=== PATIENT | female | born 1980 | race Caucasian/White ===

== ENCOUNTER 2017-08-26 15:04 | Outpatient (CLI) | payer OTHER | END 2017-08-26 15:05 | disposition home or self-care (01) | LOC: BICULT 15:04 | PROVIDERS: ATTEND Family Medicine | DX: Z34.92 Encounter for supervision of normal pregnancy, unspecified, second trimester (principal); Z3A.20 20 weeks gestation of pregnancy | CPT/HCPCS: 76805 ==

== ENCOUNTER 2018-01-12 08:48 | Inpatient (IN) | payer OTHER ==
[2018-01-15] MEDS ORDERED: Sodium Chloride 0.9% 10 ML ONE (23:40)
[2018-01-15 23:41] VITALS: BMI 35.9
[2018-01-16] MEDS ORDERED: Ondansetron HCl/PF 4 MG/2 ML Vial IVP PRN (00:15)
[2018-01-16] MEDS ORDERED: Butorphanol Tartrate 1 MG/ML VIAL SLOW IVP PRN (00:15)
[2018-01-16] MEDS ORDERED: Promethazine HCl 25 MG/ML VIAL IM PRN (00:15)
[2018-01-16] MEDS ORDERED: Acetaminophen 500 MG TAB PO PRN (00:15)
[2018-01-16 00:19] LABS: Hemoglobin 14.1 g/dL (12.0-16.0); Mean Corpuscular HGB CONC 34.9 g/dL (32.0-36.0); Mean Corpuscular Hemoglobin 31.4 pg (27.0-31.0); Mean Platelet Volume 7.2 fL (7.4-10.4); Platelet Count 224 thou/uL (130-400); RBC Distribution Width 12.4 % (11.5-14.5); Red Blood Cell (RBC) Count 4.48 mill/uL (4.20-5.40); White Blood Cell (WBC) Count 10.5 thou/uL (4.8-10.8)
[2018-01-16] MEDS ORDERED: Lidocaine 1% (PF) 30 ML VIAL SC PRN (00:30)
[2018-01-16] MEDS ORDERED: Misoprostol 200 MCG TAB RC PRN (00:30)
[2018-01-16] MEDS ORDERED: Ibuprofen 800 MG TAB PO PRN (00:30)
[2018-01-16] MEDS ORDERED: NS w/ Oxytocin 10 units 500 ML IV SCH ×2 (00:30)
[2018-01-16 00:45] LABS: Syphilis Antibody Nonreactive (Nonreactive); Syphilis Antibody Index 0.02 S/CO (<1.00 Non-Reactive)
[2018-01-16 00:46] LABS: HBSAg Index 0.14 S/CO (0-0.99); Hep B Surf Ag Non-Reactive S/CO (NonReactive)
[2018-01-16] MEDS: Lactated Ringer's 1,000 ML IV SCH ×3 (01:32→14:14)
[2018-01-16] MEDS ORDERED: NS / Oxytocin 40 units/1000ml 1,000 ML ONE ×2 (15:18→15:19)
[2018-01-16] MEDS ORDERED: Preparation H Ointment 28 GM TUBE PR PRN (19:10)
[2018-01-16] MEDS ORDERED: NS / Oxytocin 40 units/1000ml 1,000 ML IV SCH (19:10)
[2018-01-16] MEDS ORDERED: Lanolin Ointment 7 GM TUBE TOP PRN (19:10)
[2018-01-16] MEDS ORDERED: Benzocaine/Menthol 20-0.5% 60 ML CAN TOP PRN (19:10)
[2018-01-16] MEDS ORDERED: Bisacodyl 10 MG SUPP PR PRN (19:10)
[2018-01-16] MEDS ORDERED: Milk Of Magnesia 30 ML UDCUP PO PRN (19:10)
[2018-01-16] MEDS ORDERED: Ferrous Sulfate 325 MG TAB PO SCH (19:15)
[2018-01-16] MEDS ORDERED: Measles/Mumps/Rubella 10 MCG/0.5 ML VIAL SC ONE (20:00)
[2018-01-16] MEDS: Docusate Calcium (SURFAK) 240 MG CAP PO SCH (21:11)
[2018-01-17] MEDS: Ibuprofen 800 MG TAB PO SCH ×3 (01:57→13:58)
[2018-01-17] MEDS ORDERED: Ferrous Sulfate 325 MG TAB PO SCH (08:00)
[2018-01-17] MEDS: Docusate Calcium (SURFAK) 240 MG CAP PO SCH (09:02)
--- NOTE | 2018-01-17 15:15 | PDOC.PP ---
Post Progress Note Post Day #: 1 Subjective: C/O pain in the right calf, started during the night. No swelling. Some varicose veins in that leg but this is different than those. well. Lochia normal. PO intake tolerated: yes Flatus: yes Ambulation: yes Vital Signs (12 hours) Temp Pulse Resp BP 01/17/18 12:00 97.6 F 80 20 01/17/18 11:23 97.6 F 80 20 123/59 L 01/17/18 07:59 97.8 F 75 20 112/63 01/17/18 07:40 97.8 F 75 20 01/17/18 04:45 98.1 F 83 18 117/61 Weight Weight 229 lb - Physical Examination General: NAD Cardiovascular: no m/r/g, RRR Respiratory: clear to auscultation bilaterally, non-labored breathing Abdominal: + bowel sounds, lochia, no distention, appropriately TTP Extremities: negative homans (B) (No swelling, some tenderness to palpation mid calf on the right) Psychiatric: A&Ox3, normal affect Result Diagrams: 01/15/18 23:40 Additional Labs: Post Labs Blood Type O POSITIVE 01/15/18 23:49 Hep Bs Antigen Non-Reactive S/CO (NonReactive) 01/15/18 23:40 (1) Right calf pain Code(s): M79.661 - PAIN IN RIGHT LOWER LEG Status: Acute (2) Vaginal delivery Status: Acute - Assessment/Plan Check U/S of lower extremity for DVT Routine PP care D/C home this evening if U/S negative
--- NOTE | 2018-01-17 16:00 | ULT ---
RIGHT LOWER EXTREMITY VENOUS DUPLEX ULTRASOUND INCLUDING COLOR AND SPECTRAL DOPPLER IMAGING: History: 37-year-old female with history of right calf pain. Patient recently gave . FINDINGS: Exam performed from groin to ankle including visualized greater saphenous, common femoral, superficia l femoral, profunda femoral, popliteal, trifurcation and posterior tibial vein regions. There is phas ic flow at all levels. Normal compressibility and normal augmentation. IMPRESSION: No evidence for deep venous thrombosis. POS: Cristal
[2018-01-17 17:36] VITALS: BP 121/66; TEMP 97.9
== END 2018-01-17 19:45 | disposition home or self-care (01) | DRG 775 ==
LOC: L&D 01-15 22:47 → 3SW 01-16 18:33
PROVIDERS: ADMIT Family Medicine; ATTEND Family Medicine
PROC: 10E0XZZ Delivery of Products of Conception, External Approach (ICD-10-PCS; principal; 2018-01-16)
PROC: 0HQ9XZZ Repair Perineum Skin, External Approach (ICD-10-PCS; 2018-01-16)
PROC: 10907ZC Drainage of Amniotic Fluid, Therapeutic from Products of Conception, Via Natural or Artificial Opening (ICD-10-PCS; 2018-01-16)
PROC: 3E0P7VZ Introduction of Hormone into Female Reproductive, Via Natural or Artificial Opening (ICD-10-PCS; 2018-01-16)
PROC: 3E033VJ Introduction of Other Hormone into Peripheral Vein, Percutaneous Approach (ICD-10-PCS; 2018-01-16)
DX: O70.0 First degree perineal laceration during delivery (principal); Z3A.40 40 weeks gestation of pregnancy; Z37.0 Single live birth
CPT/HCPCS: 85027; 86780; 86850; 86900; 86901; 87340; 90707; A4216; C1726; J2001

== ENCOUNTER 2018-06-02 14:09 | Outpatient (CLI) | payer OTHER ==
--- NOTE | 2018-06-02 19:23 | ULT ---
PELVIC ULTRASOUND INCLUDING TRANSABDOMINAL AND TRANSVAGINAL AND VASCULAR DUPLEX WITH COLOR AND SPECTR AL DOPPLER IMAGING: HISTORY: four months ago with pelvic pain. FINDINGS: The uterus measures 7.5 x 3.4 x 4 cm. The endometrium is 0.7 cm. The right ovary measures 2.4 x 1.4 x 1.6 cm. The left ovary measures 1.9 x 1.6 x 1.9 cm and contains a 1.3 x 1.5 cm follicle. The con tour of the bladder wall was somewhat irregular, although this may just be related to incomplete fill ing. There is no abscess or abnormal fluid collection. IMPRESSION: 1. Unremarkable uterus and right and left ovaries. 2. No mass, abscess, or abnormal fluid collection. 3. Other findings as above. POS: JULIANE
== END 2018-06-02 14:10 | disposition home or self-care (01) ==
LOC: SCSULT 14:09
PROVIDERS: ATTEND Physician Assistant
DX: R10.2 Pelvic and perineal pain (principal)
CPT/HCPCS: 76856

== ENCOUNTER 2018-12-15 08:07 | Outpatient (CLI) | payer BC ==
--- NOTE | 2018-12-15 08:47 | MRI ---
MR the lumbar spine without contrast INDICATION: Low back pain with referral to the left hip for the last 6 months COMPARISON: None. TECHNIQUE: Multiplanar multisequence MR images were obtained of lumbar spine without IV contrast. FINDINGS: Bone marrow: Bone marrow signal intensity appears within normal limits. Distal spinal cord and conus: Normal. The conus seen to terminate at T12-L1. Visualized retroperitoneum and paraspinal soft tissues: Normal. Vertebral levels: L5-S1: There is an asymmetric to the right broad-based disc bulge with mild facet joint degenerative change. There is loss of the normal disc space height. Constellation of findings induces mild bilateral neural foraminal narrowing, left greater than right.. L4-5: There is mild facet joint degenerative change and a broad-based disc bulge but no appreciable c entral canal or neural foraminal narrowing. L3-4: There is a broad-based disc bulge with a superimposed central disc protrusion. There is mild fa cet joint degenerative change. There is no appreciable neural foraminal narrowing. L2-3: There is a mild broad-based disc bulge but no appreciable central canal or neural foraminal yelena rowing. L1-L2: No appreciable central canal or neuroforaminal narrowing. T12-L1: No appreciable central canal or neuroforaminal narrowing. IMPRESSION: 1. Mild spondylosis of the lumbar spine most pronounced at L3-4 and L5-S1.
== END 2018-12-15 08:08 | disposition home or self-care (01) ==
LOC: SCSMRI 08:07
PROVIDERS: ATTEND Nurse Practitioner Family
DX: M51.17 Intervertebral disc disorders with radiculopathy, lumbosacral region (principal); M47.26 Other spondylosis with radiculopathy, lumbar region; M47.27 Other spondylosis with radiculopathy, lumbosacral region
CPT/HCPCS: 72148

== ENCOUNTER 2019-02-07 07:51 | Outpatient (CLI) | payer OTHER ==
--- NOTE | 2019-02-07 11:29 | CT ---
CT ABDOMEN AND PELVIS WITHOUT IV CONTRAST: Date: 02/07/19 HISTORY: Left lower quadrant abdominal pain for a few weeks. History of prior hernia repair on the left. COMPARISON: None available. FINDINGS: Lack of intravenous contrast limits sensitivity for evaluation of the parenchymal organs. No renal or ureteral calculi are seen bilaterally, and there is no evidence of hydronephrosis. The visualized lung bases, liver, spleen, pancreas, bilateral adrenal glands, kidneys, urinary bladde r, and uterus demonstrate a grossly normal nonenhanced CT appearance. The opacified small bowel demonstrates a normal CT appearance. No dilated loops of small bowel are id entified. The appendix is visualized and normal in caliber. No free fluid, fluid collection, or lymphadenopathy is seen in the abdomen or pelvis. No suspicious lytic or sclerotic osseous lesions are identified. IMPRESSION: 1. No acute findings are seen on this nonenhanced CT scan of the abdomen and pelvis. 2. No renal or ureteral calculi are visualized. POS: [facility]
== END 2019-02-07 07:52 | disposition home or self-care (01) ==
LOC: BICCT 07:51
PROVIDERS: ATTEND Physician Assistant
DX: R10.32 Left lower quadrant pain (principal)
CPT/HCPCS: 74176

== ENCOUNTER 2019-10-11 20:17 | Day surgery (SDC) | payer SELFPAY ==
[2019-10-11 20:51] VITALS: BP 141/76; TEMP 98.6; BMI 36.0
[2019-10-11 21:36] LABS: Amnisure Test No Membranes Rupture (No Rupture)
[2019-10-11 21:37] LABS: Amnisure Internal Control QC ACCEPTABLE (ACCEPTABLE)
[2019-10-11] MEDS ORDERED: hydrALAZINE 20 MG/ML VIAL SLOW IVP PRN (22:42)
--- NOTE | 2019-10-12 07:26 | PRG ---
DATE OF SERVICE: 10/11/2019 TIME OF SERVICE: 2039. PRESENTING COMPLAINT: Congestion, cough, possible stomach bug and abdominal pain at 35-weeks gestation. HISTORY OF PRESENT ILLNESS: The patient is a G4, P3, by stated OMAIRA. No antepartum records available on the unit. She denies fever. Reports mild stomach distress especially in the mid-epigastric and congestion. She thinks she might be leaking fluid. Occasional contractions. 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 Antepartum record not available. PAST MEDICAL HISTORY: None. PAST SURGICAL HISTORY: None. ALLERGIES: DENIES. MEDICATIONS: vitamins. SOCIAL HISTORY: Denies tobacco, alcohol, or drug use. FAMILY HISTORY: Noncontributory. REVIEW OF SYSTEMS: Noncontributory. PHYSICAL EXAMINATION: GENERAL: White female, in no acute distress. VITAL SIGNS: 132/78, pulse 85, respirations 18, temperature 98.6. HEENT: Within normal limits except mild congestion of the nasal membranes. LUNGS: Clear to auscultation bilaterally. HEART: Regular rhythm and rate. ABDOMEN: Soft and nontender, 35 cm. FHTs 140s. : Vulva without lesions. Vagina without discharge. AmniSure collected. Cervix 0.5 cm, 50% effaced, -3. EXTREMITIES: No clubbing, cyanosis, or edema. LABORATORY DATA: Influenza B and A testing were negative. AmniSure was negative. heart rate tracing carried out for greater than 1 hour. Category 1 heart rate tracing. No significant contractions noted. IMPRESSION: Viral upper respiratory infection. No evidence of influenza. No evidence of rupture of membranes. Normotensive at 35 weeks gestation. PLAN: ER precautions. Discharge home. Keep scheduled followup with Dr. Simmons. Job ID: [id number]
== END 2019-10-11 23:25 | disposition home or self-care (01) ==
LOC: L&D/OP 20:17
PROVIDERS: ATTEND Family Medicine
DX: O99.513 Diseases of the respiratory system complicating pregnancy, third trimester (principal); J06.9 Acute upper respiratory infection, unspecified; O99.89 Other specified diseases and conditions complicating pregnancy, childbirth and the puerperium; R10.13 Epigastric pain; Z3A.35 35 weeks gestation of pregnancy
CPT/HCPCS: 84112; 87804; 99284

== ENCOUNTER 2019-11-01 10:00 | Inpatient (IN) | payer OTHER, SELFPAY ==
[2019-11-24 06:21] VITALS: BMI 37.5
[2019-11-24] MEDS ORDERED: NS w/ Oxytocin 10 units 500 ML ONE (07:43)
[2019-11-24] MEDS ORDERED: Methylergonovine 0.2 MG/ML VIAL IM PRN (08:27)
[2019-11-24] MEDS ORDERED: Misoprostol 200 MCG TAB PR PRN (08:27)
[2019-11-24] MEDS ORDERED: NS / Oxytocin 40 units/1000ml 1,000 ML IV PRN (08:27)
[2019-11-24] MEDS ORDERED: Carboprost 250 MCG/ML AMP IM PRN (08:27)
[2019-11-24] MEDS ORDERED: Promethazine HCl 25 MG/ML VIAL IM PRN (08:27)
[2019-11-24] MEDS ORDERED: hydrALAZINE 20 MG/ML VIAL SLOW IVP PRN ×2 (08:27→17:06)
[2019-11-24] MEDS ORDERED: Ondansetron PF 4 MG/2 ML Vial IVP PRN (08:27)
[2019-11-24] MEDS ORDERED: Lidocaine 1% (PF) 30 ML VIAL SC PRN (08:27)
[2019-11-24] MEDS ORDERED: Acetaminophen 500 MG TAB PO PRN (08:27)
[2019-11-24] MEDS ORDERED: Ibuprofen 800 MG TAB PO PRN (08:27)
[2019-11-24] MEDS ORDERED: NS w/ Oxytocin 10 units 500 ML IV SCH (08:30)
[2019-11-24] MEDS ORDERED: Lactated Ringer's 1,000 ML IV SCH (08:30)
[2019-11-24 09:24] LABS: Hemoglobin 14.2 g/dL (12.0-16.0); Mean Corpuscular HGB CONC 33.9 g/dL (32.0-36.0); Mean Corpuscular Volume 91.6 fL (78.0-98.0); Mean Platelet Volume 7.5 fL (7.4-10.4); Platelet Count 218 thou/uL (130-400); RBC Distribution Width 13.3 % (11.5-14.5); Red Blood Cell (RBC) Count 4.57 mill/uL (4.20-5.40); White Blood Cell (WBC) Count 10.2 thou/uL (4.8-10.8)
[2019-11-24 10:05] LABS: HBSAg Index 0.19 S/CO (0-0.99); Hep B Surf Ag Non-Reactive S/CO (NonReactive); Syphilis Antibody Nonreactive (Nonreactive); Syphilis Antibody Index 0.02 S/CO (<1.00 Non-Reactive)
--- NOTE | 2019-11-24 11:09 | PDOC.EVN ---
Event Note - Event Note Event Note: AROM with clear fluid. Bloody show. SVE 5-6/60/-2. FHT category I. Mom is tolerating labor very well. and television announcer at bedside. Continue pitocin.
--- NOTE | 2019-11-24 11:11 | PDOC.LDHP ---
Labor and Delivery H&P Chief complaint: scheduled induction (Post-dates 41 weeks) HPI: at 41 weeks gestation here for post-dates induction of labor. Current gestational age (weeks): 41 Due date: 11/14/19 Dating criteria: last menstrual period, first trimester ultrasound Grav: 4 Para: 3 Current complications: none Abnormal US findings: No Current medications: pre- vitamins Previous surgical history: other Allergies/Adverse Reactions: Allergies Allergy/AdvReac Type Severity Reaction Status Date / Time hydrocodone Allergy Mild Rash Verified 11/24/19 06:23 Social history: none - Physical Exam Vital signs reviewed and normal: yes General: NAD Heart: RRR Lungs: CTAB Abdomen: gravid Extremeties: no edema FHT: category 1 - Vaginal Exam cm dilated: 2 Effacement: 50% Station: -2 - OB Labs Blood type: O RH: positive Antibody Screen: negative HIV: negative RPR: negative HEPSAg: negative 1 hour GCT: negative GBS: negative Urine drug screen: not done Rubella: immune - Assessment L&D Assessment: medically indicated induction (Post-dates) - Plan Plan: admit to L&D, labor augmentation if indicated, informed consent obtained, anesthesia consult for pain management (Cooks balloon placed without difficulty. No complications. Uterine side inflated to 80ml, vaginal inflated to 60ml. Patient tolerated well.)
--- NOTE | 2019-11-24 16:55 | PDOC.OPDEL ---
OB Operative/Delivery Note Delivery Dr/Surgeon: Troy Pre-Delivery Diagnosis: medically indicated induction (Post-dates) Procedure/Post Delivery Dx: spontaneous vaginal delivery (Head OA, no nuchal cord, shoulders and body easily followed, mouth and nares bulb suctioned and baby warmed and dried and laid on mother's chest. Cord clamped and cut.) Weeks gestation: 41 Anesthesia: local - Findings A Sex: male - 1 min: 8 - 5 min: 9 - Additional Findings/Plan Placenta delivered: spontaneous (Intact) Repaired Obstetrical Laceration: 1st degree (Midline perineal laceration, repaired under local with 2.0 vicryl suture in standard running fashion) Estimated blood loss: QBL pending - see nurses notes Post delivery plan: routine recovery
[2019-11-24] MEDS ORDERED: Bisacodyl 10 MG SUPP PR PRN (17:06)
[2019-11-24] MEDS ORDERED: Lanolin Ointment 7 GM TUBE TOP PRN (17:06)
[2019-11-24] MEDS ORDERED: Benzocaine-Menthol 82.5 ML CAN TOP PRN (17:06)
[2019-11-24] MEDS ORDERED: NS / Oxytocin 40 units/1000ml 1,000 ML IV SCH (17:06)
[2019-11-24] MEDS ORDERED: Milk Of Magnesia 30 ML UDCUP PO PRN (17:06)
[2019-11-24] MEDS: Ferrous Sulfate 325 MG TAB PO SCH (18:02)
[2019-11-24] MEDS: Docusate Calcium (SURFAK) 240 MG CAP PO SCH (20:02)
[2019-11-24] MEDS: Ibuprofen 800 MG TAB PO SCH (21:52)
[2019-11-25] MEDS: Ibuprofen 800 MG TAB PO SCH ×2 (02:30→14:23)
[2019-11-25] MEDS: Ferrous Sulfate 325 MG TAB PO SCH ×2 (09:01→16:54)
[2019-11-25] MEDS: Docusate Calcium (SURFAK) 240 MG CAP PO SCH (09:06)
[2019-11-25 11:52] VITALS: BP 131/77; TEMP 98.1
--- NOTE | 2019-11-25 13:26 | PDOC.PP ---
Post Progress Note Post Day #: 1 Subjective: Doing well. Pain minimal. Lochia normal. PO intake tolerated: yes Flatus: yes Ambulation: yes Vital Signs (12 hours) Temp Pulse Resp BP 11/25/19 11:51 98.1 F 85 18 131/77 11/25/19 07:50 97.6 F 92 18 133/87 11/25/19 05:10 98.1 F 90 16 122/67 Weight Weight 240 lb - Physical Examination General: NAD Cardiovascular: no m/r/g, RRR Respiratory: clear to auscultation bilaterally, non-labored breathing Abdominal: + bowel sounds, lochia, no distention, appropriately TTP Extremities: negative homans (B) Neurological: no gross focal deficits Result Diagrams: 11/24/19 09:05 Additional Labs: Post Labs Blood Type O POSITIVE 11/24/19 09:05 Hep Bs Antigen Non-Reactive S/CO (NonReactive) 11/24/19 09:05 (1) Vaginal delivery Status: Acute - Assessment/Plan Routine care D/C home this evening F/U in 6 weeks
== END 2019-11-25 18:00 | disposition home or self-care (01) | DRG 807 ==
LOC: EDSTATUS 13:50 → L&D 11-24 05:44 → 3SW 11-24 18:51
PROVIDERS: ADMIT Family Medicine; ATTEND Family Medicine
PROC: 10E0XZZ Delivery of Products of Conception, External Approach (ICD-10-PCS; principal; 2019-11-24)
PROC: 0HQ9XZZ Repair Perineum Skin, External Approach (ICD-10-PCS; 2019-11-24)
PROC: 10907ZC Drainage of Amniotic Fluid, Therapeutic from Products of Conception, Via Natural or Artificial Opening (ICD-10-PCS; 2019-11-24)
PROC: 3E033VJ Introduction of Other Hormone into Peripheral Vein, Percutaneous Approach (ICD-10-PCS; 2019-11-24)
DX: O48.0 Post-term pregnancy (principal); Z37.0 Single live birth; Z3A.41 41 weeks gestation of pregnancy; Z88.8 Allergy status to other drugs, medicaments and biological substances; O70.0 First degree perineal laceration during delivery
CPT/HCPCS: 36415; 85027; 86780; 86850; 86900; 86901; 87340; J2590